=== PATIENT | female | born 1995 | race Caucasian/White ===

== ENCOUNTER 2020-06-16 20:36 | Emergency (ER) | payer MEDICAID, OTHER ==
[~2020-06-16] VITALS: Ht 160 cm; Wt 88.5 kg
[2020-06-16 20:55] VITALS: BP 133/60
--- NOTE | 2020-06-16 20:55 | NUR ---
TO BED AMBULATORY
--- NOTE | 2020-06-16 21:13 | NUR ---
SEE PATIENT ASSESSMENT FOR MORE INFORMATION.
--- NOTE | 2020-06-16 21:35 | NUR ---
US AT BEDSIDE.
[2020-06-16 21:59] LABS: BILIRUBIN,URINE NEGATIVE (NEGATIVE); BLOOD, URINE 3+ (NEGATIVE); LEUKOCYTE ESTERASE ,URINE NEGATIVE (NEGATIVE); NITRITE, URINE NEGATIVE (NEGATIVE); UGLUCOSE NEGATIVE (NEGATIVE)
[2020-06-16 22:01] LABS: APPEARANCE,URINE BLOODY (CLEAR); COLOR,URINE RED (YELLOW)
[2020-06-16 22:02] LABS: RBC,URINE TOO NUMEROUS TO COUN /HPF (0-5); WBC,URINE NONE SEEN /HPF (0-5)
--- NOTE | 2020-06-16 22:25 | NUR ---
LAB AT BEDSIDE.
[2020-06-16 22:32] LABS: BASOPHILS % (AUTO) 0.4 % (0.0-2.0); EOSINOPHILS # (AUTO) 0.2 K/uL (0-0.4); EOSINOPHILS % (AUTO) 2.1 % (0.0-4.0); HEMATOCRIT 38.5 % (36-48); HEMOGLOBIN 13.2 g/dL (12.0-16.0); LYMPHOCYTES # (AUTO) 3.3 K/uL (2.5-16.5); LYMPHOCYTES % (AUTO) 38.9 % (20.5-51.1); MEAN CORPUSCULAR HEMOGLOBIN 33 pg (27-31); MEAN CORPUSCULAR HGB CONC 34 g/dL (33-37); MONOCYTES # (AUTO) 0.5 K/uL (0.8-1.0); MONOCYTES % (AUTO) 6.1 % (1.7-9.3); NEUTROPHILS # (AUTO) 4.5 K/uL (1.8-7.7); NEUTROPHILS % (AUTO) 52.5 % (42.2-75.2); PLATELET COUNT (AUTO) 296 K/uL (140-450); RED BLOOD CELL COUNT(AUTO) 4.05 MIL/uL (4.20-5.40); RED CELL DISTRIBUTION WIDTH 13.3 % (11.6-13.7); WHITE BLOOD COUNT (AUTO) 8.5 K/uL (4.8-10.8)
[2020-06-16 22:51] LABS: ALBUMIN 3.9 g/dL (3.4-5.0); ANION GAP 12.5 (8-16); CARBON DIOXIDE 26.4 mmol/L (21-32); CREATININE 0.6 mg/dL (0.6-1.3); POTASSIUM 3.9 mmol/L (3.5-5.1); TOTAL BILIRUBIN 0.3 mg/dL (0.0-1.0)
[2020-06-16 23:49] VITALS: BP 113/59
--- NOTE | 2020-06-16 23:49 | NUR ---
Patient discharged with v/s stable. Written and verbal after care instructions given and explained. Patient verbalized understanding. Ambulatory with steady gait. All questions addressed prior to discharge. Advised to follow up with PMD.
== END 2020-06-16 23:19 | disposition home or self-care (01) ==
LOC: MED 20:36
DX: N92.0 Excessive and frequent menstruation with regular cycle (principal)
CPT/HCPCS: 36415; 76856; 80053; 81001; 81025; 84702; 85025; 99284

== ENCOUNTER 2020-06-20 14:40 | Emergency (ER) | payer OTHER ==
[~2020-06-20] VITALS: Ht 160 cm; Wt 88.5 kg
[2020-06-20 14:54] VITALS: BP 119/55
== END 2020-06-20 16:24 | disposition home or self-care (01) ==
LOC: MED 14:40
DX: O03.9 Complete or unspecified spontaneous abortion without complication (principal)
CPT/HCPCS: 36415; 84702; 86900; 86901; 99283

== ENCOUNTER 2021-08-23 04:05 | Emergency (ER) | payer OTHER ==
[~2021-08-23] VITALS: Ht 160 cm; Wt 89.8 kg
[2021-08-23 05:20] VITALS: BP 108/77
--- NOTE | 2021-08-23 05:23 | NUR ---
TO LOBBY A/W BED AMBULATORY
--- NOTE | 2021-08-23 07:25 | NUR ---
Ivy isaac in [facility] - 08/23/21 at 0726 by MED1 PT AMB TO BED 1.
--- NOTE | 2021-08-23 07:41 | NUR ---
Ivy isaac in [facility] - 08/23/21 at 0743 by MED1 Patient being evaluated by PEDRO LUIS arguello A.
--- NOTE | 2021-08-23 07:44 | NUR ---
Ivy isaac in [facility] - 08/23/21 at 0745 by MED1 BIB SELF C/O 10/15 GENERALIZED ABDOMINAL PAIN X 3 DAYS.
--- NOTE | 2021-08-23 07:45 | NUR ---
BIB SELF C/O 10/15 GENERALIZED ABDOMINAL PAIN X 3 DAYS. DENIES N/V/D; SKIN IS PINK/WARM/DRY; ABD SOFT, NO TENDERNESS. AAOX4 WITH EVEN AND STEADY GAIT; LUNGS CLEAR BL; HR EVEN AND REGULAR; PT DENIES ANY FEVER, CP, SOB, OR COUGH AT THIS TIME.
[2021-08-23 08:27] LABS: ALBUMIN 3.7 g/dL (3.4-5.0); ANION GAP 14.3 (8-16); CARBON DIOXIDE 25.5 mmol/L (21-32); CREATININE 0.5 mg/dL (0.6-1.3); POTASSIUM 3.8 mmol/L (3.5-5.1); TOTAL BILIRUBIN 1.1 mg/dL (0.0-1.0)
[2021-08-23 08:29] LABS: BASOPHILS % (AUTO) 0.1 % (0.0-2.0); HEMOGLOBIN 12.7 g/dL (12.0-16.0); LYMPHOCYTES # (AUTO) 1.5 K/uL (2.5-16.5); LYMPHOCYTES % (AUTO) 8.5 % (20.5-51.1); MEAN CORPUSCULAR HEMOGLOBIN 30 pg (27-31); MEAN CORPUSCULAR HGB CONC 33 g/dL (33-37); MEAN CORPUSCULAR VOLUME 90.8 fL (80-94); MONOCYTES # (AUTO) 1.1 K/uL (0.8-1.0); MONOCYTES % (AUTO) 6.5 % (1.7-9.3); NEUTROPHILS % (AUTO) 84.9 % (42.2-75.2); PLATELET COUNT (AUTO) 240 K/uL (140-450); RED BLOOD CELL COUNT(AUTO) 4.18 MIL/uL (4.20-5.40); WHITE BLOOD COUNT (AUTO) 17.7 K/uL (4.8-10.8)
[2021-08-23] MEDS ORDERED: CEPH-588 PO (09:23)
[2021-08-23] MEDS ORDERED: NAPR-1704 PO (09:23)
[2021-08-23 09:26] VITALS: BP 107/66
--- NOTE | 2021-08-23 09:27 | NUR ---
PT D/C BY DR CLOUD. Patient discharged with v/s stable. Written and verbal after care instructions ABOUT UTI AND ABDOMINAL PAIN given and explained. Patient alert, oriented and verbalized understanding of instructions. Ambulatory with steady gait. All questions addressed prior to discharge. ID band removed. Patient advised to follow up with PMD. Rx of KEFLEX AND NAPROXEN given. Patient educated on indication of medication including possible reaction and side effects. Opportunity to ask questions provided and answered.
== END 2021-08-23 09:27 | disposition home or self-care (01) ==
LOC: MED 04:05
DX: R10.30 Lower abdominal pain, unspecified (principal)
CPT/HCPCS: 36415; 76830; 76856; 80053; 81002; 81025; 83690; 85025; 99284; Q0092